=== PATIENT | female | born 1975 | race Caucasian/White ===

== ENCOUNTER 2024-10-20 06:33 | Day surgery (SDC) | payer BC ==
[~2024-10-20 06:33] MED LIST: Dextrose 5%-0.45% NaCl 1,000 ML IV SCH
[2024-10-20] MEDS: Lactated Ringers 1,000 ML IV SCH (07:01)
[2024-10-20] MEDS ORDERED: Propofol 200 MG/20 ML SDV ONE ×2 (07:17→07:39)
== END 2024-10-20 08:58 | disposition home or self-care (01) ==
LOC: DL.ENDO 06:33
PROVIDERS: ATTEND Internal Medicine Gastroenterology
DX: Z12.11 Encounter for screening for malignant neoplasm of colon (principal); I10 Essential (primary) hypertension; F32.A Depression, unspecified
CPT/HCPCS: 45378; J7120